=== PATIENT | female | born 1985 | race African-American/Black ===

== ENCOUNTER 2017-03-01 16:47 | Emergency (ER) | payer MEDICAID, OTHER ==
[~2017-03-01] VITALS: Ht 172.7 cm; Wt 49.9 kg
[~2017-03-01 16:47] MED LIST: IBUPROFEN600 MG ORAL; NKM; ONDANSETRON ODT4 MG PO; VICODIN 5-5001 EACH ORAL
[2017-03-01 16:58] VITALS: BP 109/73
[2017-03-01] MEDS ORDERED: BACITRACIN15 GM TOPIC (17:12)
[2017-03-01] MEDS ORDERED: Bacitracin Oint UD TOPIC ONE (17:15)
[2017-03-01 17:17] VITALS: BP 109/73
--- NOTE | 2017-03-01 22:35 | Emergency Room Report ---
History of Present Illness General Chief Complaint: Pain Source: Patient Present Illness HPI The patient is a 31-year-old female presenting for right-sided breast lesion. She states that she thinks she has a mole on the right breast which has been changing. She states that it has been present for several years. She states that "it comes and goes." She states that it is at her bra line and causes discomfort. Pain is a 7/10 dull ache. Worse with touch. She has not yet been seen for this. It has not grown in size. There is no bleeding. There is no nipple discharge. She denies any other symptoms including fever, chills, SOB, CP, weight loss, night sweats. 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 Allergies: Coded Allergies: No Known Allergies (Unverified , 01/02/12) Patient History Past Medical History: see triage record Pertinent Family History: none Now: No Reviewed Nursing Documentation: PMH: Agreed, PSxH: Agreed Nursing Documentation-PMH Hx Cancer: No - benine breast tumor and fibroids removal Review of Systems All Other Systems: negative except mentioned in HPI Physical Exam Vital Signs Date Time Temp Pulse Resp B/P (MAP) Pulse Ox O2 Delivery O2 Flow Rate FiO2 03/01/17 16:50 97.9 88 17 109/73 100 Room Air Sp02 EP Interpretation: reviewed, normal General Appearance: no apparent distress, alert, GCS 15, non-toxic Head: normocephalic, atraumatic Eyes: bilateral eye normal inspection, bilateral eye PERRL ENT: hearing grossly normal, normal pharynx, no angioedema, normal voice Respiratory: chest non-tender, lungs clear, normal breath sounds, speaking full sentences Cardiovascular #1: regular rate, rhythm, no edema Musculoskeletal: back normal, gait/station normal, normal range of motion Neurologic: alert, oriented x3, responsive, motor strength/tone normal, sensory intact, speech normal Psychiatric: judgement/insight normal, memory normal, mood/affect normal, no suicidal/homicidal ideation Skin: normal color, no rash, other - On the right lateral area low there is a small excess growth of skin. Approximately 2 mm at the base which has been slightly irritated with erythema. It is elevated approximately 5 mm off of the surface of the skin. Lymphatic: no adenopathy Medical Decision Making PA Attestation Dr. Geiger is my supervising physician. Patient management was discussed with my supervising physician Diagnostic Impression: Primary Impression: Skin lesion of breast ER Course The patient is a 31-year-old female presenting for right-sided breast lesion. Differential diagnoses considered but not limited to: Malignancy, mole, skin tag , cellulitis, abscess, among others PE: NAD Breast exam was performed with nurse Zoë in room. On the right lateral area low there is a small excess growth of skin. Approximately 2 mm at the base which has been slightly irritated with erythema. It is elevated approximately 5 mm off of the surface of the skin. No nipple discharge. Surgical scar present from removal of fibroadenoma Otherwise unremarkable The area is cleaned and bacitracin applied so as not to become infected She will be discharged home and will followup with dermatology. ER precautions are given Last Vital Signs Date Time Temp Pulse Resp B/P (MAP) Pulse Ox O2 Delivery O2 Flow Rate FiO2 03/01/17 17:17 97.9 72 17 109/73 100 Room Air Status: improved Disposition: HOME, SELF-CARE Condition: Improved Scripts Bacitracin (Bacitracin) 28.4 Gm Oint...g. 1 APPLIC TOPIC THREE TIMES A DAY, #28 GM Prov: CHIDI CRANDALL 03/01/17 Referrals: [facility],REFERRING (PCP) Patient Instructions: Breast Tenderness Additional Instructions: I discussed my findings with the patient. All questions and concerns have been answered. Treatment and medication compliance have been addressed. I advised the patient that they need to follow up with PMD in 3-5 days. Return to ED if symptoms worsen, new symptoms arise, or if needed for any reason. Patient verbalized understanding of discharge instructions. The patient was told to followup with dermatology for further evaluation CHIDI CRANDALL Mar 01, 2017 22:35
== END 2017-03-01 17:17 | disposition home or self-care (01) ==
LOC: EMR 16:59
DX: N64.9 Disorder of breast, unspecified (principal); L98.9 Disorder of the skin and subcutaneous tissue, unspecified
CPT/HCPCS: 99283